=== PATIENT | male | born 1955 | race Caucasian/White ===

== ENCOUNTER 2019-04-06 10:36 | Observation (INO) | payer SELFPAY ==
--- NOTE | 2019-04-06 10:47 | ER Document Report ---
ED Medical Screen (RME) - General Chief Complaint: Breathing Difficulty Stated Complaint: DIFFICULTY BREATHING Time Seen by Provider: 04/06/19 10:42 Mode of Arrival: Ambulatory Information source: Patient Notes: 63-year-old male presents to ED for complaint of severe shortness of breath. He states since Wednesday his shortness of breath has been much worse since he started getting cold symptoms. He does have emphysema. States he still smokes a pack a day she does not use any alcohol or drugs. He states he does have inhalers prescribed but they run out. He denies taking any kind of steroids. Patient is alert and oriented respirations are mildly labored 32 with O2 sat of 96. I have greeted and performed a rapid initial assessment of this patient. A comprehensive ED assessment and evaluation of the patient, analysis of test results and completion of medical decision making process will be conducted by an additional ED providers.
[2019-04-06] MEDS ORDERED: PREDNISONE 20 MG TABLET PO ONE (10:48)
[2019-04-06] MEDS ORDERED: IPRATROPIUM/ALBUTEROL 0.5-2.5 MG/3 ML AMPUL NEB ONE (10:48)
[2019-04-06] MEDS ORDERED: ALBUTEROL SULFATE 0.083% NEB 2.5 MG/3 ML AMPUL NEB ONE (10:48)
[2019-04-06 11:25] LABS: ABSOLUTE EOSINOPHILS # (AUTO) 0.4 10^3/uL (0.0-0.6); ABSOLUTE MONOCYTES (AUTO) 0.6 10^3/uL (0.1-1.4); ABSOLUTE NEUT (AUTO) 5.5 10^3/uL (1.7-8.2); BASOPHILS % (AUTO) 0.6 % (0-2); EOSINOPHILS % (AUTO) 4.9 % (0-6); HEMATOCRIT 44.2 % (37.9-51.0); LYMPHOCYTES % (AUTO) 12.8 % (13-45); MEAN CORPUSCULAR HEMOGLOBIN 31.2 pg (27.0-33.4); MEAN CORPUSCULAR VOLUME 92 fl (80-97); MONOCYTES % (AUTO) 8.5 % (3-13); PLATELET COUNT 148 10^3/uL (150-450); RED BLOOD COUNT 4.82 10^6/uL (4.35-5.55); RED CELL DISTRIBUTION WIDTH 13.2 % (11.5-14.0); SEGMENTED NEUTROPHILS % (AUTO) 73.2 % (42-78); TOTAL CELLS COUNTED % (AUTO) 100 %; WHITE BLOOD COUNT 7.5 10^3/uL (4.0-10.5)
[2019-04-06 11:45] LABS: ALBUMIN 4.1 g/dL (3.5-5.0); ALKALINE PHOSPHATASE 68 U/L (38-126); ANION GAP 8 (5-19); ASPARTATE AMINO TRANSFERASE 18 U/L (17-59); BILIRUBIN,DIRECT 0.1 mg/dL (0.0-0.4); BILIRUBIN,TOTAL 0.3 mg/dL (0.2-1.3); BLOOD UREA NITROGEN 12 mg/dL (7-20); CALCIUM 9.3 mg/dL (8.4-10.2); CARBON DIOXIDE 27 mmol/L (22-30); CHLORIDE 102 mmol/L (98-107); CREATINE KINASE 36 U/L (55-170); GLUCOSE 137 mg/dL (75-110); POTASSIUM 4.2 mmol/L (3.6-5.0); TOTAL PROTEIN 6.9 g/dL (6.3-8.2)
--- NOTE | 2019-04-06 12:05 | RADIOLOGY REPORT (SQ) ---
EXAM DESCRIPTION: CHEST 2 VIEWS COMPLETED DATE/TIME: 04/06/2019 11:39 am REASON FOR STUDY: short of breath rales andrhonchi COMPARISON: None. NUMBER OF VIEWS: Two view. TECHNIQUE: Frontal and lateral radiographic views of the chest acquired. LIMITATIONS: None. FINDINGS: LUNGS AND PLEURA: No opacities, masses or pneumothorax. No pleural effusion. Attenuated bl ood vessels and flattened mansoor-diaphragms. MEDIASTINUM AND HILAR STRUCTURES: No masses. No contour abnormalities. HEART AND VASCULAR STRUCTURES: Heart normal in size and contour. No evidence for failure. BONES: No acute findings. HARDWARE: None in the chest. OTHER: No other significant finding. IMPRESSION: COPD. NO ACUTE RADIOGRAPHIC FINDING IN THE CHEST. TECHNICAL DOCUMENTATION: JOB ID: [id number] [employer]- All Rights Reserved Reading location - IP/workstation name: [email or web address]
[2019-04-06] MEDS ORDERED: DILTIAZEM HCL/D5W 125 MG/125 ML RTUINJ IV PRN ×2 (12:28→15:17)
--- NOTE | 2019-04-06 12:34 | ER Document Report ---
ED General - General Chief Complaint: Shortness Of Breath Stated Complaint: DIFFICULTY BREATHING Time Seen by Provider: 04/06/19 10:42 Mode of Arrival: Ambulatory TRAVEL OUTSIDE OF THE [place] IN LAST 30 DAYS: No - HPI Notes: Patient is a 63-year-old male who presents emergency department for evaluation of shortness of breath. He states his symptoms all started on Wednesday when he started getting "cold symptoms." He states he says stuffiness and a productive cough. He states he is felt febrile, but no cierra fevers to his knowledge. Some chills. He states he feels somewhat short of breath. He denies any chest pain or chest tightness. No nausea or vomiting. He does not have a doctor. The only medication he has at home is an albuterol inhaler that he uses as needed. - Related Data Allergies/Adverse Reactions: codeine Adverse Reaction (Verified 04/06/19 10:43) VOMITING Past Medical History - General Information source: Patient - Social History Smoking Status: Current Every Day Smoker Chew tobacco use (# tins/day): No Frequency of alcohol use: None Drug Abuse: None Family History: Reviewed & Not Pertinent Patient has suicidal ideation: No Patient has homicidal ideation: No Pulmonary Medical History: Reports: Hx COPD Review of Systems - Review of Systems Constitutional: No symptoms reported EENT: No symptoms reported Cardiovascular: No symptoms reported Respiratory: See HPI Gastrointestinal: No symptoms reported Genitourinary: No symptoms reported Musculoskeletal: No symptoms reported Skin: No symptoms reported Neurological/Psychological: No symptoms reported Physical Exam - Vital signs Vitals: Temp Pulse Resp BP Pulse Ox 97.9 F 123 H 32 H 109/86 H 93 04/06/19 10:48 04/06/19 10:48 04/06/19 10:48 04/06/19 10:48 04/06/19 10:48 - Notes Notes: This is a 63-year-old male who appears older than her stated age in no acute distress. Vital signs reviewed, please refer to chart. Head is normocephalic, atraumatic. Pupils equal round, reactive to light. Neck is supple without meningismus. Heart is irregularly irregular and tachycardic. Lungs reveal diminished expiratory breath sounds with occasional wheezes. Abdomen is soft, nontender, normoactive bowel sounds throughout. Extremities without cyanosis, clubbing. Posterior calves are nontender. Peripheral pulses are equal. Skin is warm and dry. Patient is awake, alert, neurological exam is nonfocal. Course - Re-evaluation Re-evalutation: 04/06/19 12:33 Patient presents to the emergency department for evaluation. Was placed on a lab analyst, had laboratory investigations and EKG is ordered through triage. EKG reveals atrial fibrillation. Patient states he was told he had a "extra beat" in the past, but denies any history of atrial fibrillation. We talked about this condition at length. His heart rate ranged between 95 and 125 while here in the emergency department. I had his thyroid studies, cardiac enzymes, coags. The patient was started on a Cardizem drip, as his blood pressures were borderline. We discussed possible admission, he was concerned about financial limitations of this. We will continue to monitor. 04/06/19 14:24 Patient's heart rate is well controlled on a low-dose Cardizem drip. He was not bolused secondary to his borderline blood pressure. He is feeling improved. The patient has no insurance. He is never seen cardiology. Given his age I think it is appropriate for him to be anticoagulated, he would not be able to afford 1 of the newer does wax. He is given a dose of Lovenox, likely with a bridge to Coumadin. I spoke with Dr. Mcconnell, will admit the patient for further care. - Vital Signs Vital signs: Temp Pulse Resp BP Pulse Ox 97.9 F 123 H 32 H 109/86 H 93 04/06/19 10:48 04/06/19 10:48 04/06/19 10:48 04/06/19 10:48 04/06/19 10:48 - Laboratory Result Diagrams: 04/06/19 11:17 04/06/19 11:17 Laboratory results interpreted by me: 04/06/19 04/06/19 04/06/19 11:17 11:17 11:17 Plt Count 148 L Lymph % (Auto) 12.8 L APTT Glucose 137 H Creatine Kinase 36 L TSH 0.38 L 04/06/19 11:17 Plt Count Lymph % (Auto) APTT 36.2 H Glucose Creatine Kinase TSH - Diagnostic Test Radiology reviewed: Image reviewed, Reports reviewed Radiology results interpreted by me: 04/06/19 12:34 Chest X-Ray 04/06/19 10:48 IMPRESSION: COPD. NO ACUTE RADIOGRAPHIC FINDING IN THE CHEST. - EKG Interpretation by Me Additional EKG results interpreted by me: 04/06/19 12:34 Atrial fibrillation with a rate of 107 bpm. Normal axis and intervals. No acute ST changes concerning for ischemia or infarction. No old studies availa ble for comparison. Discharge - Discharge Clinical Impression: Rapid atrial fibrillation, COPD (chronic obstructive pulmonary disease) Condition: Stable Disposition: ADMITTED INPATIENT Admitting Provider: Jayesh (Hospitalist) Unit Admitted: [facility]
[2019-04-06 12:40] LABS: INTERNATIONAL RATION (INR) 0.97; PROTHROMBIN TIME 12.9 SEC (11.4-15.4)
[2019-04-06 12:41] LABS: PARTIAL THROMBOPLASTIN TIME 36.2 SEC (23.5-35.8)
--- NOTE | 2019-04-06 13:05 | EKG REPORT ---
SEVERITY:- ABNORMAL ECG - ATRIAL FIBRILLATION, V-RATE 79-130 : Confirmed by: Kian Harrell MD 06-Apr-2019 13:04:20
[2019-04-06] MEDS ORDERED: ENOXAPARIN SODIUM INJ 60 MG/0.6 ML DISP.SYRIN SUBCUT ONE (14:20)
[2019-04-06] MEDS ORDERED: PROMETHAZINE HCL INJ 25 MG/1 ML VIAL IV PRN (15:12)
[2019-04-06] MEDS ORDERED: TEMAZEPAM 7.5 MG CAPSULE PO PRN (15:12)
[2019-04-06] MEDS ORDERED: ACETAMINOPHEN 325 MG TABLET PO PRN (15:12)
[2019-04-06] MEDS ORDERED: LEVALBUTEROL HCL NEB 0.63 MG/3 ML AMPUL NEB PRN (15:12)
[2019-04-06] MEDS ORDERED: ONDANSETRON HCL INJ/PF 4 MG/2 ML SDV IV PRN (15:12)
[2019-04-06] MEDS ORDERED: METOPROLOL TARTRATE PF/INJ 5 MG/5 ML SDV IV PRN (15:18)
--- NOTE | 2019-04-06 15:34 | PDOC H&P ---
History of Present Illness Admission Date/PCP: 04/06/19 14:41 History of Present Illness: SHANNON ARMSTRONG is a 63 year old male past medical history of COPD not on home O2, presenting to ED complaining of shortness of breath. Stating this all started on Wednesday when he was having flulike symptoms chest stuffiness, productive cough, chills. Denies any chest pain, nausea, vomiting, diarrhea, constipation, lightheadedness, orthopnea, paroxysmal nocturnal dyspnea, lower extremity swel ling, weakness, lightheadedness, syncope or presyncope. Patient is visiting out of town, has history of COPD not on O2, using albuterol inhaler as needed, current heavy smoker. He does state that he was told that he had skipped heartbeats however he was never told that he had atrial fibrillation. 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 In ED he was found to be on A. fib RVR, and tachypnea, started on Cardizem drip and hospitalist consulted for admission. Past Medical History Pulmonary Medical History: Reports: Chronic Obstructive Pulmonary Disease (COPD) Social History Smoking Status: Current Every Day Smoker Electronic Cigarette use?: No Family History Family History: Reviewed & Not Pertinent Parental Family History Reviewed: Yes Children Family History Reviewed: Yes Sibling(s) Family History Reviewed.: Yes Medication/Allergy Allergies/Adverse Reactions: codeine Adverse Reaction (Verified 04/06/19 10:43) VOMITING Review of Systems Review of Systems: as per hpi Physical Exam Vital Signs: Temp Pulse Resp BP Pulse Ox 97.9 F 123 H 32 H 109/86 H 93 04/06/19 10:48 04/06/19 10:48 04/06/19 10:48 04/06/19 10:48 04/06/19 10:48 Intake & Output 04/05/19 04/06/19 04/07/19 06:59 06:59 06:59 Weight 55.2 kg General appearance: PRESENT: no acute distress, thin, well-developed, well- nourished Head exam: PRESENT: atraumatic, normocephalic Eye exam: PRESENT: conjunctiva pink, EOMI, PERRLA. ABSENT: scleral icterus Ear exam: PRESENT: normal external ear exam Mouth exam: PRESENT: moist, tongue midline Neck exam: ABSENT: carotid bruit, JVD, lymphadenopathy, thyromegaly Respiratory exam: PRESENT: clear to auscultation alicia. ABSENT: rales, rhonchi, wheezes Cardiovascular exam: PRESENT: irregular rhythm. ABSENT: diastolic murmur, rubs, systolic murmur Pulses: PRESENT: normal dorsalis pedis pul Vascular exam: PRESENT: normal capillary refill GI/Abdominal exam: PRESENT: normal bowel sounds, soft. ABSENT: distended, guarding, mass, organolmegaly, rebound, tenderness Rectal exam: PRESENT: deferred Extremities exam: PRESENT: full ROM. ABSENT: calf tenderness, clubbing, pedal edema Neurological exam: PRESENT: alert, awake, oriented to person, oriented to place, oriented to time, oriented to situation, CN II-XII grossly intact. ABSENT: motor sensory deficit Psychiatric exam: PRESENT: appropriate affect, normal mood. ABSENT: homicidal ideation, suicidal ideation Skin exam: PRESENT: dry, intact, warm. ABSENT: cyanosis, rash Results Laboratory Results: 04/06/19 11:17 04/06/19 11:17 04/06/19 04/06/19 04/06/19 11:17 11:17 11:17 WBC 7.5 RBC 4.82 Hgb 15.0 Hct 44.2 MCV 92 MCH 31.2 MCHC 34.0 RDW 13.2 Plt Count 148 L Seg Neutrophils % 73.2 Sodium 137.4 Potassium 4.2 Chloride 102 Carbon Dioxide 27 Anion Gap 8 BUN 12 Creatinine 0.83 Est GFR ( Amer) > 60 Glucose 137 H Calcium 9.3 Total Bilirubin 0.3 AST 18 Alkaline Phosphatase 68 Total Protein 6.9 Albumin 4.1 Lipase 44.9 TSH 0.38 L 04/06/19 04/06/19 04/06/19 11:17 11:17 11:17 Creatine Kinase 36 L CK-MB (CK-2) 0.41 Troponin I < 0.012 Impressions: Chest X-Ray 04/06/19 10:48 IMPRESSION: COPD. NO ACUTE RADIOGRAPHIC FINDING IN THE CHEST. Assessment and Plan - Diagnosis (1) Atrial fibrillation with RVR Is this a current diagnosis for this admission?: Yes Plan: New onset. Likely transient given the history of recent upper respiratory infection complicated by COPD. CHADSVASC Score 0. May not need chronic anticoagulation. Patient does endorse history of having "skipped heart beat" however denies having history of A. fib. Admit to telemetry, Cardizem drip to transition to either p.o. Cardizem or beta- blockers. Consult cardiology for further recommendations. (2) Tobacco abuse Is this a current diagnosis for this admission?: Yes Plan: Current heavy smoker. Has been smoking for > 50 years. Strongly advised quitting. Will provide NicoDerm patch. (3) COPD (chronic obstructive pulmonary disease) Qualifiers: COPD type: COPD with acute exacerbation Qualified Code(s): J44.1 - Chronic obstructive pulmonary disease with (acute) exacerbation Is this a current diagnosis for this admission?: Yes Plan: Acute on chronic COPD exacerbation. Not on home oxygen. Likely due to ongoing heavy tobacco abuse and recent upper respiratory infect ion. Admit to telemetry, duo nebs, IV steroids, ICS, LABA, LABA, PRN BiPAP.
[2019-04-06 15:59] LABS: FREE T3 3.69 pg/mL (2.77-5.27); FREE T4 (FREE THYROXINE) 1.07 ng/dL (0.78-2.19)
[2019-04-06] MEDS ORDERED: INFLUENZA QUAD (6MOS+) 2019-20 VAC 0.5 ML SYR IM ONE (18:09)
[2019-04-06] MEDS: DOCUSATE SODIUM 100 MG CAPSULE PO SCH (18:43)
[2019-04-06] MEDS: HEPARIN SOD (PORCINE) 5,000 UNIT/ML 1 ML VIAL SUBCUT SCH (21:20)
[2019-04-06] MEDS: FAMOTIDINE 20 MG TABLET PO SCH (21:23)
[2019-04-06] MEDS: METHYLPREDNISOLONE INJ 40 MG/1 ML SDV IV SCH (21:23)
[2019-04-07] MEDS: HEPARIN SOD (PORCINE) 5,000 UNIT/ML 1 ML VIAL SUBCUT SCH ×2 (05:08→14:00)
[2019-04-07] MEDS: METHYLPREDNISOLONE INJ 40 MG/1 ML SDV IV SCH ×2 (05:16→14:00)
[2019-04-07 05:57] LABS: INTERNATIONAL RATION (INR) 0.98
[2019-04-07 05:58] LABS: HEMOGLOBIN 14.5 g/dL (13.5-17.0); MEAN CORPUSCULAR HEMOGLOBIN 30.8 pg (27.0-33.4); MEAN CORPUSCULAR HGB CONC 33.7 g/dL (32.0-36.0); MEAN CORPUSCULAR VOLUME 91 fl (80-97); PARTIAL THROMBOPLASTIN TIME 32.6 SEC (23.5-35.8); PLATELET COUNT 163 10^3/uL (150-450); RED BLOOD COUNT 4.71 10^6/uL (4.35-5.55); RED CELL DISTRIBUTION WIDTH 13.1 % (11.5-14.0); WHITE BLOOD COUNT 12.6 10^3/uL (4.0-10.5)
[2019-04-07] MEDS: FAMOTIDINE 20 MG TABLET PO SCH (09:16)
[2019-04-07] MEDS: DOCUSATE SODIUM 100 MG CAPSULE PO SCH ×2 (09:16→17:33)
[2019-04-07] MEDS ORDERED: METOPROLOL SUCCINATE 25 MG TAB.SR.24H PO SCH (10:00)
[2019-04-07 10:49] LABS: APPEARANCE,URINE CLEAR; BILIRUBIN,URINE NEGATIVE (NEGATIVE); COLOR,URINE YELLOW; GLUCOSE, URINE >=500 mg/dL (NEGATIVE); KETONES,URINE NEGATIVE (NEGATIVE); LEUKOCYTE ESTERASE,URINE NEGATIVE (NEGATIVE); NITRITE,URINE NEGATIVE (NEGATIVE); PROTEIN,URINE NEGATIVE (NEGATIVE); URINE SPECIFIC GRAVITY 1.008; UROBILINOGEN,URINE NEGATIVE mg/dL (<2.0)
[2019-04-07 16:52] VITALS: BP 121/71
--- NOTE | 2019-04-07 18:05 | EKG REPORT ---
SEVERITY:- ABNORMAL ECG - ATRIAL FIBRILLATION, V-RATE 61-[address] ELEVATION, NORMAL VARIANT : Confirmed by: Kian Harrell MD 07-Apr-2019 18:05:30
--- NOTE | 2019-04-10 14:22 | Left Against Medical Advice ---
Against Medical Advice Admission Date/Time: 04/06/19 14:41 Primary Care Provider: Date of Patient Emigration: 04/07/19 - Diagnosis: (1) Atrial fibrillation with RVR Is this a current diagnosis for this admission?: Yes (2) Tobacco abuse Is this a current diagnosis for this admission?: Yes (3) COPD (chronic obstructive pulmonary disease) Is this a current diagnosis for this admission?: Yes - Summary: Summary: Please see Admission and Progress Notes as well. SHANNON ARMSTRONG is a 63 M, who LEFT AGAINST MEDICAL ADVICE. The Patient was admitted on 04/06/19 14:41. SHANNON ARMSTRONG is a 63 year old male past medical history of COPD not on home O2, presenting to ED complaining of shortness of breath. Stating this all started on Wednesday when he was having flulike symptoms chest stuffiness, productive cough, chills. Denies any chest pain, nausea, vomiting, diarrhea, constipation, lightheadedness, orthopnea, paroxysmal nocturnal dyspnea, lower extremity swelling, weakness, lightheadedness, syncope or presyncope. Patient is visiting out of town, has history of COPD not on O2, using albuterol inhaler as needed, current heavy smoker. He does state that he was told that he had skipped heartbeats however he was never told that he had atrial fibrillation. Does not see a psychiatric technician assistant. In ED he was found to be on A. fib RVR, and tachypnea, started on Cardizem drip and hospitalist consulted for admission. (1) Atrial fibrillation with RVR New onset. Likely transient given the history of recent upper respiratory infection complicated by COPD. CHADSVASC Score 0. Was admitted to telemetry and started on Cardizem drip to be transitioned to either p.o. Cardizem or beta-blockers. Consult cardiology for further recommendations but unfortunately patient decided to leave AGAINST MEDICAL ADVICE.
== END 2019-04-07 18:35 | disposition left against medical advice (07) ==
LOC: ER 10:36 → INTOOBSV 14:41 → EH 14:41 → 3N 17:25
PROVIDERS: ADMIT Internal Medicine; ATTEND Internal Medicine
DX: I48.91 Unspecified atrial fibrillation (principal); J44.1 Chronic obstructive pulmonary disease with (acute) exacerbation; F17.210 Nicotine dependence, cigarettes, uncomplicated; R05 Cough; R68.83 Chills (without fever); Z79.899 Other long term (current) drug therapy; Z23 Encounter for immunization
CPT/HCPCS: 93005 ×2; 94640; 99285; 36415 ×2; 84439; 82553; 82550; 83690; 83735; 84443; 85025; 85027; 85610 ×2; 85730 ×2; 80053; 81001; 84484; 84481; 83036; 83880; 71046; 90686; 93010 ×2; G0378 ×3; J1644; J2920 ×2; J7512; J3490; J7620